=== PATIENT | male | born 1975 | race African-American/Black ===

== ENCOUNTER 2016-10-24 08:37 | Day surgery (SDC) | payer OTHER ==
[~2016-10-24] VITALS: Ht 167.6 cm; Wt 80.7 kg
[2016-10-24] MEDS ORDERED: GABAPENTIN (09:36)
[2016-10-24] MEDS ORDERED: EYE DROPS (09:36)
[2016-10-24 09:37] VITALS: Ht 167.6 cm; Wt 80.7 kg
[2016-10-24 09:58] VITALS: BP 124/84; PULSE 69; RESP 18
[2016-10-24 11:37] VITALS: BP 112/77; PULSE 64; RESP 18
[2016-10-24] MEDS ORDERED: MIDAZOLAM 1 MG/ML 2 ML INJ ONE ×2 (18:52)
[2016-10-24] MEDS ORDERED: FENTAnyl 50 MCG/ML VIAL ONE (18:52)
--- NOTE | 2016-11-21 09:22 | GILP ---
DATE OF PROCEDURE: 11/08/2016 PREOPERATIVE DIAGNOSES: 1. Rectal bleeding. 2. Family history of colon cancer. POSTOPERATIVE DIAGNOSES: 1. Colonoscopy all the way to the cecum. 2. Internal hemorrhoids. 3. No colitis or neoplasm was identified. PROCEDURE PERFORMED: Colonoscopy. SURGEON: Jesus Awad MD. INDICATION FOR PROCEDURE: Mr. Samuel Cantu is a 41-year-old male patient who has rectal bleeding. He has a family history of colon cancer. The patient was scheduled for a colonoscopy for further evaluation. The procedure and possible complications were well explained to the patient. He understood and consented to the procedure. DESCRIPTION OF PROCEDURE: Under influence of fentanyl and Versed the colonoscope was carefully introduced in the rectum and under direct vision it was advanced all the way to the cecum. Findings, the patient had internal hemorrhoids. No colitis or neoplasm was identified. He tolerated the procedure very well and there was no complications from the procedure. At the end of procedure he was awake with stable vital signs and he was discharged home in the care of his family. IMPRESSION: 1. Colonoscopy all the way to the cecum. 2. Internal hemorrhoids. 3. No colitis or neoplasm was identified. PLAN: 1. Anusol HC 2.5 percent cream q.h.s. p.r.n. 2. Next screening colonoscopy in 10 years. Dictated By: MD YAHIR Botello/michelle/иван /Document#: [id number] CC: Jesus Awad MD;*[facility]*
== END 2016-10-24 14:51 | disposition home or self-care (01) ==
LOC: GIL 08:37
PROVIDERS: ATTEND Internal Medicine Gastroenterology
DX: K64.8 Other hemorrhoids (principal); Z80.0 Family history of malignant neoplasm of digestive organs
CPT/HCPCS: 45378; J2250; J3010; Z7610